=== PATIENT | male | born 1950 | race Two or more races ===

== ENCOUNTER 2016-05-30 15:13 | Inpatient (IN) | payer OTHER ==
[~2016-05-30] VITALS: Ht 162.6 cm; Wt 84.5 kg
[2016-05-30 16:28] LABS: Basophils # (auto) 0 uL; Basophils % (auto) 0.8 % (0.0-2.0); Eosinophils # (auto) 0.2 uL; Eosinophils % (auto) 3.6 % (0.0-7.0); Hematocrit 35.4 % (41.0-53.0); Lymphocytes # (auto) 0.8 uL; Lymphocytes % (auto) 16.9 % (10.0-50.0); Mean Corpuscular Hgb Conc. 33.9 g/dL (32.0-36.0); Mean Corpuscular Volume 97.2 fL (80.0-100.0); Mean Platelet Volume 7.5 fL (7.4-10.4); Monocytes # (auto) 0.6 uL; Monocytes % (auto) 13.7 % (0.0-12.0); Platelet Count (auto) 107 10^3/uL (140-450); Red Cell Distribution Width 15.4 % (11.6-16.0); White Blood Cell 4.6 10^3/uL (4.4-10.8)
[2016-05-30 16:41] LABS: Albumin 2.5 g/dL (3.4-5.0); BUN/Creatinine Ratio 17.2; Calcium 8.1 mg/dL (8.5-10.1); Magnesium 2.3 mg/dL (1.6-2.6); Potassium 3.3 mmol/L (3.5-5.1)
[2016-05-30 16:44] LABS: Total Protein 7.1 g/dL (6.4-8.2)
[2016-05-31] MEDS ORDERED: PANTOPRAZOLE SODIUM 40 MG/10 ML VIAL IV ONE ×2 (06:45→23:00)
[2016-05-31] MEDS ORDERED: POTASSIUM CHL 10% (20 MEQ/15ML) ORAL SOLN PO ONE (06:45)
[2016-05-31] MEDS ORDERED: PANTOPRAZOLE SODIUM 80 MG in SODIUM CHL 0.9% 60 ML IV ONE (06:45)
[2016-05-31] MEDS ORDERED: LACTULOSE 20Gm/30ML SOLN PO ONE (06:45)
[2016-05-31 08:29] LABS: INR 1.14 (0.9-1.15); Partial Thromboplastin Time 31.7 sec (22.64-33.71); Prothrombin Time 11.7 sec (9.37-12.3)
[2016-05-31 09:23] LABS: Urine Bilirubin Negative (Negative); Urine Blood Negative /uL (Negative); Urine Color Yellow (Yellow); Urine Glucose Normal (Normal); Urine Hyaline Cast FEW /lpf (0 - 2); Urine Ketone Negative (Negative); Urine Nitrite Negative (Negative); Urine RBC 1 /hpf (0 - 3); Urine Squamous Epithelial Cell FEW /hpf (<5); Urine Urobilinogen Normal (Negative)
[2016-05-31] MEDS ORDERED: PROMETHAZINE HCL 25 MG/ML 1ML IV PRN (12:45)
[2016-05-31] MEDS ORDERED: MORPHINE SULF INJ 2 MG/ML SYRINGE 1ML IV PRN ×2 (12:45)
[2016-05-31] MEDS ORDERED: LORazepam 0.5 MG TAB PO PRN (12:45)
[2016-05-31] MEDS ORDERED: NITROGLYCERIN 0.4 MG SL TAB SL PRN (12:45)
[2016-05-31] MEDS ORDERED: cefTRIAXone 1GM/50ML D5W 50 ML IV ONE (13:00)
[2016-05-31] MEDS: SODIUM CHLORIDE 0.9% 1,000 ML IV SCH ×2 (13:03→21:54)
[2016-05-31] MEDS ORDERED: LEVOTHYROXINE SODIUM 25 MCG TAB PO ONE (13:15)
[2016-05-31] MEDS: metroNIDAZOLE 500MG/100ML 100 ML IV SCH ×2 (14:22→21:53)
[2016-05-31 17:00] VITALS: BP 122/67
[2016-05-31] MEDS: LACTULOSE 20Gm/30ML SOLN PO SCH (17:39)
[2016-05-31 18:21] LABS: Hematocrit 33.1 % (41.0-53.0); Hemoglobin 11.2 g/dL (13.5-17.5)
[2016-05-31 18:33] VITALS: BP 122/67
[2016-05-31 22:00] VITALS: BP 121/70
[2016-05-31] MEDS ORDERED: OCTREOTIDE ACETATE 50 MCG in SODIUM CHL 0.9% 50 ML IV ONE ×2 (22:45→23:00)
[2016-06-01] MEDS ORDERED: OCTREOTIDE ACETATE 100 MCG/ML VL ONE (00:13)
[2016-06-01] MEDS: LACTULOSE 20Gm/30ML SOLN PO SCH ×5 (00:28→23:51)
[2016-06-01] MEDS ORDERED: OCTREOTIDE ACETATE 500 MCG/ML VL ONE (00:47)
[2016-06-01] MEDS: OCTREOTIDE ACETATE 500 MCG in SODIUM CHL 0.9% 99 ML IV SCH ×3 (01:08→18:43)
[2016-06-01 01:11] LABS: Hematocrit 29.7 % (41.0-53.0)
[2016-06-01 05:30] VITALS: BP 112/61
[2016-06-01 06:11] LABS: Basophils # (auto) 0 uL; Basophils % (auto) 0.9 % (0.0-2.0); Eosinophils # (auto) 0.2 uL; Eosinophils % (auto) 5.2 % (0.0-7.0); Hematocrit 31.4 % (41.0-53.0); Hemoglobin 10.7 g/dL (13.5-17.5); Lymphocytes # (auto) 0.7 uL; Lymphocytes % (auto) 18.5 % (10.0-50.0); Mean Corpuscular Hemoglobin 33.8 pg (28.0-32.0); Mean Corpuscular Volume 99.3 fL (80.0-100.0); Mean Platelet Volume 7.9 fL (7.4-10.4); Monocytes # (auto) 0.4 uL; Monocytes % (auto) 10.7 % (0.0-12.0); Neutrophils # (auto) 2.6 uL; Neutrophils % (auto) 64.7 % (37.0-80.0); Platelet Count (auto) 81 10^3/uL (140-450); Red Cell Distribution Width 15.8 % (11.6-16.0)
[2016-06-01] MEDS: metroNIDAZOLE 500MG/100ML 100 ML IV SCH ×3 (06:18→22:11)
[2016-06-01 06:38] LABS: Albumin 2.2 g/dL (3.4-5.0); BUN/Creatinine Ratio 15.9; Calcium 8.1 mg/dL (8.5-10.1)
[2016-06-01 06:46] LABS: Potassium 2.8 mmol/L (3.5-5.1)
[2016-06-01] MEDS ORDERED: POTASSIUM CHLORIDE 40 MEQ, LIDOCAINE 1% (LOCAL ANESTH.) 4 ML in SODIUM CHL 0.9% 250 ML IV ONE (07:00)
[2016-06-01] MEDS ORDERED: LEVOTHYROXINE SODIUM 25 MCG TAB PO SCH (07:00)
[2016-06-01] MEDS: SODIUM CHLORIDE 0.9% 1,000 ML IV SCH ×2 (08:08→12:54)
[2016-06-01] MEDS ORDERED: PANTOPRAZOLE SODIUM 40 MG/10 ML VIAL IV SCH (10:00)
[2016-06-01] MEDS: PANTOPRAZOLE SODIUM 40 MG/10 ML VIAL IV SCH ×2 (11:17→22:10)
[2016-06-01] MEDS: cefTRIAXone 1GM/50ML D5W 50 ML IV SCH (11:18)
[2016-06-01 12:44] VITALS: BP 143/70
[2016-06-01] MEDS ORDERED: BUME2TAB3 PO (14:45)
[2016-06-01] MEDS ORDERED: RIFA550T PO (14:45)
[2016-06-01] MEDS ORDERED: FOLI5INJ PO (14:45)
[2016-06-01] MEDS ORDERED: LACT10SO32 PO (14:45)
[2016-06-01] MEDS ORDERED: LORA-352 PO (14:45)
[2016-06-01] MEDS ORDERED: B-COTAB76 PO (14:45)
[2016-06-01] MEDS ORDERED: MULT-228 PO (14:45)
[2016-06-01] MEDS ORDERED: METO2.5T11 PO (14:45)
[2016-06-01] MEDS ORDERED: POTA10SO11 PO (14:45)
[2016-06-01] MEDS ORDERED: TRAZ50TA2 PO (14:45)
[2016-06-01 16:38] VITALS: BP 108/64
[2016-06-01] MEDS ORDERED: SODIUM CHLORIDE LOCK 10 ML ONE (17:16)
[2016-06-01] MEDS ORDERED: LIDOCAINE VISCOUS 2% 15ML UD ONE (17:18)
[2016-06-01] MEDS ORDERED: MIDAZOLAM HCL 5 MG/ML-1ML VIAL ONE (17:20)
[2016-06-01] MEDS: fentaNYL CITRATE 100 MCG/2 ML VL ONE ×2 (17:37→17:40)
[2016-06-01] MEDS: MIDAZOLAM HCL 5 MG/ML-1ML VIAL ONE ×2 (17:37→17:40)
[2016-06-01] MEDS ORDERED: FLUMAZENIL 0.1 MG/ML INJ 10ML MDV IV ONE (17:39)
[2016-06-01] MEDS ORDERED: NALOXONE HCL 0.4 MG/ML VIAL ONE (17:39)
[2016-06-01] MEDS: D5W/SOD CHL 0.45% 1,000 ML IV SCH (18:41)
[2016-06-01 19:49] LABS: Urine Bilirubin Negative (Negative); Urine Blood Negative /uL (Negative); Urine Color Yellow (Yellow); Urine Glucose Normal (Normal); Urine Ketone TRACE (Negative); Urine Nitrite Negative (Negative); Urine RBC <1 /hpf (0 - 3); Urine Urobilinogen Normal (Negative)
[2016-06-01 20:13] LABS: BUN/Creatinine Ratio 14.4; Calcium 7.6 mg/dL (8.5-10.1); Potassium 3.1 mmol/L (3.5-5.1)
[2016-06-01 22:00] VITALS: BP 148/63
[2016-06-02 05:08] VITALS: BP 138/69
[2016-06-02] MEDS: OCTREOTIDE ACETATE 500 MCG in SODIUM CHL 0.9% 99 ML IV SCH (05:45)
[2016-06-02] MEDS: metroNIDAZOLE 500MG/100ML 100 ML IV SCH (05:48)
[2016-06-02] MEDS: LACTULOSE 20Gm/30ML SOLN PO SCH ×2 (05:48→12:15)
[2016-06-02] MEDS: D5W/SOD CHL 0.45% 1,000 ML IV SCH (05:48)
[2016-06-02 06:15] LABS: Basophils # (auto) 0 uL; Basophils % (auto) 0.7 % (0.0-2.0); Eosinophils # (auto) 0.2 uL; Eosinophils % (auto) 5.7 % (0.0-7.0); Hematocrit 28.8 % (41.0-53.0); Hemoglobin 9.8 g/dL (13.5-17.5); Lymphocytes # (auto) 0.7 uL; Lymphocytes % (auto) 19.3 % (10.0-50.0); Mean Corpuscular Volume 100.1 fL (80.0-100.0); Mean Platelet Volume 7.9 fL (7.4-10.4); Monocytes # (auto) 0.4 uL; Monocytes % (auto) 10.2 % (0.0-12.0); Neutrophils # (auto) 2.3 uL; Neutrophils % (auto) 64.1 % (37.0-80.0); Platelet Count (auto) 66 10^3/uL (140-450); Red Cell Distribution Width 15.7 % (11.6-16.0); White Blood Cell 3.6 10^3/uL (4.4-10.8)
[2016-06-02 06:49] LABS: BUN/Creatinine Ratio 15.2; Calcium 7.4 mg/dL (8.5-10.1); Phosphorus 2.7 mg/dL (2.6-4.90); Uric Acid 9.6 mg/dL (3.5-7.2)
[2016-06-02] MEDS ORDERED: fentaNYL CITRATE 100 MCG/2 ML VL ONE (07:08)
[2016-06-02] MEDS ORDERED: LIDOCAINE VISCOUS 2% 15ML UD ONE (07:08)
[2016-06-02] MEDS ORDERED: diphenhdrAMINE HCL 50 MG/1 ML VL ONE (07:09)
[2016-06-02] MEDS ORDERED: MIDAZOLAM HCL 5 MG/ML-1ML VIAL ONE (07:09)
[2016-06-02] MEDS ORDERED: SODIUM CHLORIDE LOCK 0 ML ONE (07:11)
[2016-06-02 09:00] VITALS: BP 123/41
[2016-06-02] MEDS: PANTOPRAZOLE SODIUM 40 MG/10 ML VIAL IV SCH (09:57)
[2016-06-02] MEDS: cefTRIAXone 1GM/50ML D5W 50 ML IV SCH (09:57)
[2016-06-02] MEDS ORDERED: SPIRONOLACTONE 25 MG TAB PO ONE (12:00)
[2016-06-02] MEDS ORDERED: POTASSIUM CHL 20 Meq TABLET PO ONE (12:00)
[2016-06-02 12:44] VITALS: BP 122/53
[2016-06-02 15:07] VITALS: BP 122/53
== END 2016-06-02 15:07 | disposition home or self-care (01) | DRG 377 ==
LOC: ER 15:22 → TELE 15:23 → TELE-WESTW 05-31 16:48
PROVIDERS: ADMIT Internal Medicine; ATTEND Internal Medicine
PROC: 0DJ08ZZ Inspection of Upper Intestinal Tract, Via Natural or Artificial Opening Endoscopic (ICD-10-PCS; principal; 2016-05-30)
DX: K92.2 Gastrointestinal hemorrhage, unspecified (principal); E43 Unspecified severe protein-calorie malnutrition; K85.20 Alcohol induced acute pancreatitis without necrosis or infection; D61.818 Other pancytopenia; E87.1 Hypo-osmolality and hyponatremia; K76.6 Portal hypertension; N17.9 Acute kidney failure, unspecified; K20.9 Esophagitis, unspecified; I85.10 Secondary esophageal varices without bleeding; E87.6 Hypokalemia; I12.9 Hypertensive chronic kidney disease with stage 1 through stage 4 chronic kidney disease, or unspecified chronic kidney disease; K31.89 Other diseases of stomach and duodenum; K70.31 Alcoholic cirrhosis of liver with ascites; M19.90 Unspecified osteoarthritis, unspecified site; N18.3 Chronic kidney disease, stage 3 (moderate)
CPT/HCPCS: 36415; 43235; 71020; 74176; 76775; 80048; 80053; 81001; 82140; 82150; 82270; 82570; 83690; 83735; 84100; 84156; 84300; 84443; 84550; 85014; 85018; 85025; 85045; 85610; 85730; 86850; 86900; 86901; 93005; 96365; 96367; 96375; C9113; J0696; J2001; J2250; J3490

== ENCOUNTER 2017-01-07 22:10 | Inpatient (IN) | payer OTHER ==
[~2017-01-07] VITALS: Ht 162.6 cm; Wt 87.6 kg
[~2017-01-07 22:10] MED LIST: B-COTAB76 PO; BUME2TAB3 PO; FOL5I PO; LACT10SO32 PO; LORA-352 PO; METO2.5T11 PO; MULT-228 PO; POTA10SO11 PO; RIFA550T PO
[2017-01-07 22:42] LABS: Basophils # (auto) 0.1 uL; Basophils % (auto) 1.5 % (0.0-2.0); CONDITION Y; Eosinophils # (auto) 0.3 uL; Eosinophils % (auto) 5.2 % (0.0-7.0); Hematocrit 36.3 % (41.0-53.0); Hemoglobin 12.6 g/dL (13.5-17.5); Lymphocytes # (auto) 0.9 uL; Lymphocytes % (auto) 15.1 % (10.0-50.0); Mean Corpuscular Hemoglobin 33.9 pg (28.0-32.0); Mean Corpuscular Hgb Conc. 34.6 g/dL (32.0-36.0); Mean Corpuscular Volume 97.8 fL (80.0-100.0); Monocytes # (auto) 0.7 uL; Neutrophils # (auto) 4.2 uL; Neutrophils % (auto) 67.2 % (37.0-80.0); Platelet Count (auto) 136 10^3/uL (140-450); Red Cell Distribution Width 16.2 % (11.6-16.0); White Blood Cell 6.2 10^3/uL (4.4-10.8)
[2017-01-07 23:06] LABS: Albumin 2.3 g/dL (3.4-5.0); BUN/Creatinine Ratio 13.3; Calcium 7.6 mg/dL (8.5-10.1)
[2017-01-07 23:09] LABS: Bilirubin, Total 1.9 mg/dL (0.2-1.0); Total Protein 6.4 g/dL (6.4-8.2)
[2017-01-07 23:32] LABS: Potassium 6.2 mmol/L (3.5-5.1)
[2017-01-08] MEDS ORDERED: HYDR-3682 PO (01:01)
[2017-01-08] MEDS ORDERED: CALCIUM GLUC 4.65meq/50ml D5AE 50 ML IV ONE (06:15)
[2017-01-08] MEDS ORDERED: SODIUM BICARBONATE 8.4 % INJ 50ML VIAL IV ONE (06:15)
[2017-01-08] MEDS ORDERED: InsuLIN REG 1unit/0.01ml Soln (100units/ml) IV ONE (06:15)
[2017-01-08] MEDS ORDERED: DEXTROSE (25%) 10 ML SYRG IV ONE (06:15)
[2017-01-08] MEDS ORDERED: SODIUM POLYSTYRENE SULF 15GM/60ML SUSP PO ONE (06:15)
[2017-01-08] MEDS ORDERED: SODIUM BICARBONATE 8.4% INJ 50ML SYRINGE ONE ×2 (06:28)
[2017-01-08] MEDS ORDERED: NITROGLYCERIN 0.4 MG SL TAB SL PRN (07:00)
[2017-01-08] MEDS ORDERED: MORPHINE SULF INJ 2 MG/ML SYRINGE 1ML IV PRN (07:00)
[2017-01-08] MEDS ORDERED: ACETAMINOPHEN 325 MG TAB PO PRN (07:15)
[2017-01-08] MEDS ORDERED: PANTOPRAZOLE 40 MG/10 ML VIAL IV ONE (07:15)
[2017-01-08] MEDS ORDERED: ONDANSETRON HCL 4 MG/2 ML VIAL IV PRN (07:15)
[2017-01-08] MEDS ORDERED: HYDROcodone-ACET 5/325MG TAB PO PRN (07:15)
[2017-01-08] MEDS: SODIUM CHLORIDE 0.9% 1,000 ML IV SCH ×2 (08:00→22:42)
[2017-01-08 08:17] LABS: INR 1.17 (0.9-1.15); Partial Thromboplastin Time 19.2 sec (22.64-33.71); Prothrombin Time 12.8 sec (9.37-12.3)
[2017-01-08 08:40] VITALS: BP 105/55
[2017-01-08 08:59] VITALS: BP 105/55
[2017-01-08 09:09] LABS: Hematocrit 35.3 % (41.0-53.0); Hemoglobin 12.1 g/dL (13.5-17.5)
[2017-01-08] MEDS: RIFAXIMIN 550 MG TAB PO SCH ×2 (10:00→21:42)
[2017-01-08] MEDS ORDERED: MIDODRINE HCL 10 MG TAB PO SCH (10:00)
[2017-01-08] MEDS: LACTULOSE 20Gm/30ML SOLN PO SCH ×2 (11:46→21:42)
[2017-01-08] MEDS ORDERED: TRAZ50TA2 PO (12:33)
[2017-01-08 12:48] LABS: BUN/Creatinine Ratio 14.2; Calcium 8.3 mg/dL (8.5-10.1); Potassium 3.2 mmol/L (3.5-5.1)
[2017-01-08] MEDS ORDERED: POTASSIUM CHL 20 Meq TABLET PO ONE (18:00)
[2017-01-08] MEDS ORDERED: BUMETANIDE 1 MG TAB PO SCH (18:00)
[2017-01-08 22:00] VITALS: BP 110/61
[2017-01-08] MEDS ORDERED: PANTOPRAZOLE 40 MG/10 ML VIAL IV SCH (22:00)
== END 2017-01-09 00:15 | disposition short-term general hospital (02) | DRG 377 ==
LOC: ER 22:11 → TELE 22:12 → TELE-E-ADS 01-08 08:16 → TELE-EAST 01-08 10:51
PROVIDERS: ADMIT Nurse Practitioner; ATTEND Internal Medicine Geriatric Medicine
DX: K92.2 Gastrointestinal hemorrhage, unspecified (principal); K76.7 Hepatorenal syndrome; N17.9 Acute kidney failure, unspecified; I95.9 Hypotension, unspecified; Z76.82 Awaiting organ transplant status; E87.5 Hyperkalemia; K70.30 Alcoholic cirrhosis of liver without ascites; N18.9 Chronic kidney disease, unspecified; I12.9 Hypertensive chronic kidney disease with stage 1 through stage 4 chronic kidney disease, or unspecified chronic kidney disease; Z82.49 Family history of ischemic heart disease and other diseases of the circulatory system; Z79.899 Other long term (current) drug therapy; Z85.05 Personal history of malignant neoplasm of liver
CPT/HCPCS: 36415; 74176; 80048; 80053; 82270; 82962; 84132; 85014; 85018; 85025; 85610; 85730; 86850; 86900; 86901; 93005; 94761; 96374; 96375; C9113; J0610; J1815